=== PATIENT | female | born 1995 | race Caucasian/White ===

== ENCOUNTER → 2020-10-12 | Outpatient (CLI) | payer OTHER ==
[2015-11-29 21:13] VITALS: BP 117/75
[~2020-10-12] MED LIST: CITA20TA9 PO
--- NOTE | 2020-10-21 08:44 | RAD ---
DATE: 10/12/2020 EXAM: BREAST BILATERAL HISTORY: 25-year-old woman with history of eczema presenting for areas of skin discoloration in the breast bilaterally. The patient reports that this comes and goes. Possible reaction to medication. COMPARISON: None FINDINGS: Ultrasound of the breasts were performed in the areas of concern. In the left breast at 7:00, 7 cm from the nipple there is a 1.1 x 1.6 x 0.3 cm ovoid, circumscribed hypoechoic lesion in the skin with increased vascularity. This is parallel in orientation. No extension deep to the skin. No suspicious mass within the breast parenchyma. In the right breast at its o'clock 5 cm from nipple there is a 0.8 x 0.9 x 0.2 cm ovoid, circumscribed hypoechoic lesion in the scan with some adjacent increased vascularity. This is parallel in orientation. No extension deep to the skin. There is a second similar-appearing lesion at 6:00 8 cm from the nipple measuring 0.7 x 0.5 x 0.3 cm, also within the skin. No suspicious mass within the breast parenchyma. IMPRESSION: Benign circumscribed ovoid hypoechoic skin lesions in both breasts, corresponding with the areas of discoloration. No evidence of malignancy in the breast parenchyma. BI-RADS CATEGORY: 2 BENIGN FINDING(S) RECOMMENDED FOLLOW-UP: Management follow-up based on physical exam and clinical history. PQRS compliance statement: Patient information was entered into a reminder system with a target due date for the next mammogram. Mammography is a sensitive method for finding small breast cancers, but it does not detect them all and is not a substitute for careful clinical examination. A negative mammogram does not negate a clinically suspicious finding and should not result in delay in biopsying a clinically suspicious abnormality. "Our facility is accredited by the [employer] Mammography Program." [facility]
== END ==
LOC: MAMMO 13:01
PROVIDERS: ATTEND Nurse Practitioner Family
DX: N60.12 Diffuse cystic mastopathy of left breast (principal); N64.89 Other specified disorders of breast; Z85.3 Personal history of malignant neoplasm of breast
CPT/HCPCS: 76641